=== PATIENT | male | born 1985 | race Caucasian/White ===

== ENCOUNTER 2017-03-22 10:42 | Emergency (ER) | payer MEDICAID ==
[2017-03-22 16:17] LABS: BASOPHIL % 0.4 % (0-2); PLATELET COUNT 208 x10^3mcL (130-400); RED CELL DISTRIBUTION WIDTH 12.9 % (11.5-14.5)
[2017-03-22 16:27] LABS: microscopic required? NO
[2017-03-22 16:30] LABS: CALCIUM 9.1 mg/dL (8.5-10.1); CARBON DIOXIDE 26.3 mmol/L (21-32); CHLORIDE SERUM 102 mmol/L (98-107); CREATININE SERUM 0.8 mg/dL (0.7-1.3); GFR1 > 60 mL/min; GLUCOSE SERUM 99 mg/dL (74-106); POTASSIUM SERUM 3.6 mmol/L (3.5-5.1); SODIUM SERUM 137 mmol/L (136-145)
[2017-03-22 16:33] LABS: urine erythrocyte NEGATIVE (NEGATIVE)
[2017-03-22 16:42] LABS: ALBUMIN 4.5 g/dL (3.4-5.0); ALKALINE PHOSPHATASE 103 U/L (46-116); ALT/SGPT 26 U/L (16-63); AST/SGOT 21 U/L (15-37); BILIRUBIN TOTAL 0.66 mg/dL (0.20-1.00); LIPASE 84 IU/L (73-393); T4(THYROXINE) 9.5 ug/dL (4.7-13.3); URIC ACID 5.2 mg/dL (3.5-7.2)
[2017-03-22 16:42] LABS: AMPHETAMINE QUAL UR NONE DETECTED (NEG <=1000)
[2017-03-22 16:44] LABS: CHOLESTEROL 209 mg/dL (<200); CHOLESTEROL/HDL RATIO 7.7; HDL CHOLESTEROL 27 mg/dL (40-60); TOTAL PROTEIN, SERUM 8.7 g/dL (6.4-8.2); TRIGLYCERIDES 735 mg/dL (<150)
[2017-03-22 17:19] VITALS: BP 133/89
== END 2017-03-22 17:19 | disposition home or self-care (01) ==
LOC: ED 10:42
PROVIDERS: Emergency Medicine
DX: M25.561 Pain in right knee (principal); M25.562 Pain in left knee; M25.519 Pain in unspecified shoulder; M25.529 Pain in unspecified elbow; E78.1 Pure hyperglyceridemia; R10.9 Unspecified abdominal pain; R42 Dizziness and giddiness
CPT/HCPCS: 36415

== ENCOUNTER 2017-09-15 09:15 | Emergency (ER) | payer SELFPAY ==
[~2017-09-15] VITALS: Ht 167.6 cm; Wt 67.6 kg
[2017-09-15 09:29] VITALS: Ht 167.6 cm; Wt 67.6 kg
[2017-09-15 11:12] VITALS: BP 130/86
== END 2017-09-15 11:12 | disposition home or self-care (01) ==
LOC: ED 09:15
DX: J06.9 Acute upper respiratory infection, unspecified (principal)
CPT/HCPCS: J1885; Q0092; Q0162

== ENCOUNTER 2020-03-30 19:36 | Emergency (ER) | payer MEDICAID ==
[~2020-03-30] VITALS: Ht 165.1 cm; Wt 67.1 kg
[2020-03-30 19:54] VITALS: Ht 165.1 cm; Wt 67.1 kg
[2020-03-30 21:39] VITALS: BP 133/80
== END 2020-03-30 21:39 | disposition home or self-care (01) ==
LOC: ED 19:36
DX: R14.0 Abdominal distension (gaseous) (principal); R35.0 Frequency of micturition; R30.0 Dysuria; R10.30 Lower abdominal pain, unspecified